=== PATIENT | female | born 1945 | race Caucasian/White ===

== ENCOUNTER 2023-04-06 13:56 | Emergency (ER) | payer MEDICARE ==
[2023-04-06 14:55] VITALS: O2SAT 97
[2023-04-06 15:02] LABS: Hematocrit 43.6 % (35-47); Hemoglobin 14.2 g/dL (12.0-16.0); Mean Corpuscular Hgb Concent. 32.6 g/dL (32-36); Mean Platelet Volume 8.7 fL (7.5-11.0); Platelet Count 203 x10^3/uL (150-450); Red Cell Distribution Width 12.9 % (11.5-14.0)
[2023-04-06 15:11] LABS: Appearance Clear (Clear); Bacteria None Seen /HPF (None Seen); Bilirubin Negative (Negative); Blood Negative (Negative); Epithelial Cells None Seen /HPF (None Seen); Glucose, Urine Negative (Negative); Hyaline Casts NONE SEEN /LPF (0-2); Ketones Trace (Negative); Leukocyte Esterase Moderate (Negative); Nitrite Negative (Negative); Ph 6.5 (4.6-8.0); Protein,Urine Dip Negative (Negative); RBC 0-2 /HPF (0-5)
[2023-04-06 15:15] LABS: ADD URINE CULTURE? YES (NO)
[2023-04-06 15:17] LABS: ACETAMINOPHEN < 10 ug/ml (10-30); ALBUMIN 4.2 g/dL (3.5-5.0); ALKALINE PHOSPHATASE 50 U/L (38-126); ANION GAP 9.9 MEQ/L (5-15); BLOOD UREA NITROGEN 11 mg/dL (7-17); CHLORIDE 98 mmol/L (98-107); Calcium 9.6 mg/dL (8.4-10.2); Carbon Dioxide 28 mmol/L (22-30); Creatinine 1 0.76 mg/dL (0.52-1.04); EST GLOMERULAR FILTRATION RATE 81.7 ML/MIN; Glucose 106 mg/dL (74-106); Potassium 3.9 mmol/L (3.5-5.1); SALICYLATE < 1.0 mg/dL (2-20); SGOT/AST 27 U/L (14-36); SGPT/ALT 14 U/L (0-35); SODIUM 133 mmol/L (137-145); Total Protein 7.3 g/dL (6.3-8.2)
[2023-04-06 15:27] LABS: Amphetamine,Urine NEGATIVE (NEGATIVE); Barbiturate,Urine NEGATIVE (NEGATIVE); Benzodiazepine,Urine NEGATIVE (NEGATIVE); Cocaine,Urine NEGATIVE (NEGATIVE); Methadone,Urine NEGATIVE (NEGATIVE); Opiate,Urine NEGATIVE (NEGATIVE); PCP,Urine NEGATIVE (NEGATIVE); THC,Urine NEGATIVE (NEGATIVE)
--- NOTE | 2023-04-06 16:04 | ERPHSYRPT ---
- History of Present Illness Time Seen by Provider: 04/06/23 14:04 Source: patient, family, EMS Exam Limitations: no limitations Patient Subjective Stated Complaint: Confusion Triage Nursing Assessment: 77 yr old female pt arrives to ED via EMS. Pt was over at [facility] and the provider wanted her to get assessed due to her behavior. Pt is alert and oriented but a poor historian. Pt is bouncing from one thought to the next. Pt keeps stating that she had open heart heart surgery last april 26, 2023. and we need to contact her weight clerk. Pt states she was planning to get back on her antidepressant and anxiety medication but they would not prescribe it to her and made her come here. Physician History: 77-year-old female with history of coronary artery disease, valve replacement, anxiety/depression who was at [facility] group therapy program when therapist noticed that she was a little confused and is sent in here for further evaluation. Patient is awake alert and fully oriented during my evaluation to make sure she does not have UTI. Patient reports she does not have any pain and has been thoroughly evaluated 2 times before this week at [facility] with CAT scan of head done yesterday which was negative. Patient denies any suicidal or homicidal ideations. She has not been very compliant with her psychiatric medications. Patient reports she does not understand why she has been sent in here. Patient during interview laughs off and on for no reason. Not a good historian and history is limited. I have talked to her daughter who is here with her and she admits that patient is at her baseline and has issue with taking her routine medications especially psychiatric ones. She did have similar symptoms in the past with UTI. Allergies/Adverse Reactions: hydrocodone Allergy (Verified 04/06/23 14:04) meperidine [From Demerol] Allergy (Verified 04/06/23 14:04) Home Medications: Denosumab 60 mg [Prolia 60 mg Injection] See Rx Instructions .ROUTE .COMPLEX 04/06/23 [History] Hx Tetanus, Diphtheria Vaccination/Date Given: Yes Hx Influenza Vaccination/Date Given: Yes Hx Pneumococcal Vaccination/Date Given: Yes Immunizations Up to Date: Yes Travel Risk - International Travel Have you traveled outside of the country in past 3 weeks: No - Coronavirus Screening Are you exhibiting any of the following symptoms?: No Close contact with a COVID-19 positive Pt in past 14-21 Days: No - Vaccine Status Have you recieved a Covid-19 vaccination: Yes Front Office Director: Moderna - Vaccination Dates Date of 2cond Vaccination (if applicable): 2020 - Review of Systems Constitutional: No Symptoms Eyes: No Symptoms Ears, Nose, & Throat: No Symptoms Respiratory: No Symptoms Cardiac: No Symptoms Abdominal/Gastrointestinal: No Symptoms Genitourinary Symptoms: No Symptoms Musculoskeletal: Arthralgias Skin: No Symptoms Neurological: No Symptoms Psychological: Anxiety, Depression, No Suicidal Ideations, No Homicidal Ideations, No Hallucinations Endocrine: No Symptoms Hematologic/Lymphatic: No Symptoms - Past Medical History Pertinent Past Medical History: Yes Neurological History: Migraines ENT History: No Pertinent History Cardiac History: Other Respiratory History: No Pertinent History Endocrine Medical History: No Pertinent History Musculoskeletal History: Arthritis GI Medical History: No Pertinent History History: No Pertinent History Psycho-Social History: Anxiety, Depression Female Reproductive Disorders: No Pertinent History - Past Surgical History Past Surgical History: Yes Neuro Surgical History: No Pertinent History Cardiac: Valve Replacement Respiratory: No Pertinent History Gastrointestinal: No Pertinent History Genitourinary: No Pertinent History Musculoskeletal: Orthopedic Surgery Female Surgical History: Tubal Ligation Other Surgical History: knee surgery - Social History Smoking Status: Never smoker Drug Use: none Patient Lives Alone: Yes - Nursing Vital Signs Nursing Vital Signs: Initial Vital Signs Pulse Rate 70 04/06/23 14:01 Blood Pressure 120/66 04/06/23 14:01 O2 Sat by Pulse Oximetry 99 04/06/23 14:01 Pain Scale Pain Intensity 0 - Physical Exam General Appearance: no apparent distress, alert Eye Exam: PERRL/EOMI Ears, Nose, Throat Exam: normal ENT inspection Neck Exam: normal inspection, supple, full range of motion Respiratory Exam: normal breath sounds, lungs clear Cardiovascular Exam: regular rate/rhythm, normal heart sounds Gastrointestinal/Abdomen Exam: soft, normal bowel sounds, No tenderness Back Exam: normal inspection, normal range of motion Extremity Exam: normal inspection, normal range of motion Neurologic Exam: alert, oriented x 3, cooperative, ledger poster II-XII nml as tested, nml cerebellar function, nml station & gait, sensation nml, No normal mood/affect, No motor deficits Skin Exam: normal color SpO2 Interpretation: normal SpO2: 97 O2 Delivery: Room Air Ordered Tests: Active Orders 24 hr Category Date Time Status Clean Catch Urine Specimen STAT Care 04/06/23 14:10 Active HEAD WITHOUT CONTRAST [CT] Stat Exams 04/06/23 14:09 Ordered ACETAMINOPHEN Stat Lab 04/06/23 14:58 Completed CBC Stat Lab 04/06/23 14:58 Completed CMP Stat Lab 04/06/23 14:58 Completed CULTURE,URINE Stat Lab 04/06/23 14:55 Received MAG [MAGNESIUM] Stat Lab 04/06/23 15:09 Completed SALICYLATE Stat Lab 04/06/23 14:58 Completed UA W/RFX UR CULTURE Stat Lab 04/06/23 14:55 Completed Urine Triage Profile Stat Lab 04/06/23 14:55 Completed Lab/Rad Data: Laboratory Result Diagrams 04/06/23 14:58 04/06/23 14:58 Laboratory Results 04/06/23 04/06/23 04/06/23 Range/Units 15:09 14:58 14:58 WBC (4.0-10.5) x10^3/uL RBC (4.1-5.4) x10^6/uL Hgb (12.0-16.0) g/dL Hct (35-47) % MCV (78-100) fL MCH (26-32) pg MCHC (32-36) g/dL RDW (11.5-14.0) % Plt Count (150-450) x10^3/uL MPV (7.5-11.0) fL Sodium 133 L (137-145) mmol/L Potassium 3.9 (3.5-5.1) mmol/L Chloride 98 (98-107) mmol/L Carbon Dioxide 28 (22-30) mmol/L Anion Gap 9.9 (5-15) MEQ/L BUN 11 (7-17) mg/dL Creatinine 0.76 (0.52-1.04) mg/dL Estimated GFR 81.7 ML/MIN Glucose 106 (74-106) mg/dL Calcium 9.6 (8.4-10.2) mg/dL Magnesium 2.2 (1.6-2.3) mg/dL Total Bilirubin 0.60 (0.2-1.3) mg/dL AST 27 (14-36) U/L ALT 14 (0-35) U/L Alkaline Phosphatase 50 (38-126) U/L Ammonia < 9 L (9-30) umol/L Serum Total Protein 7.3 (6.3-8.2) g/dL Albumin 4.2 (3.5-5.0) g/dL Urine Color (Yellow) Urine Appearance (Clear) Urine pH (4.6-8.0) Ur Specific [place] (1.005-1.030) Urine Protein (Negative) Urine Glucose (UA) (Negative) mg/dL Urine Ketones (Negative) Urine Blood (Negative) Urine Nitrite (Negative) Urine Bilirubin (Negative) Urine Urobilinogen (0.2) mg/dL Ur Leukocyte Esterase (Negative) U Hyaline Cast (Auto) (0-2) /LPF Urine Microscopic RBC (0-5) /HPF Urine Microscopic WBC (0-5) /HPF Ur Epithelial Cells (None Seen) /HPF Urine Bacteria (None Seen) /HPF Urine Culture Reflexed (NO) Salicylates < 1.0 L (2-20) mg/dL Urine Opiates Level (NEGATIVE) Ur Methadone (NEGATIVE) Acetaminophen < 10 L (10-30) ug/ml Urine Barbiturates (NEGATIVE) Ur Phencyclidine (PCP) (NEGATIVE) Urine Amphetamine (NEGATIVE) U Benzodiazepine Level (NEGATIVE) Urine Cocaine (NEGATIVE) Urine Marijuana (THC) (NEGATIVE) 04/06/23 04/06/23 04/06/23 Range/Units 14:58 14:55 14:55 WBC 5.0 (4.0-10.5) x10^3/uL RBC 4.90 (4.1-5.4) x10^6/uL Hgb 14.2 (12.0-16.0) g/dL Hct 43.6 (35-47) % MCV 89.0 (78-100) fL MCH 29.0 (26-32) pg MCHC 32.6 (32-36) g/dL RDW 12.9 (11.5-14.0) % Plt Count 203 (150-450) x10^3/uL MPV 8.7 (7.5-11.0) fL Sodium (137-145) mmol/L Potassium (3.5-5.1) mmol/L Chloride (98-107) mmol/L Carbon Dioxide (22-30) mmol/L Anion Gap (5-15) MEQ/L BUN (7-17) mg/dL Creatinine (0.52-1.04) mg/dL Estimated GFR ML/MIN Glucose (74-106) mg/dL Calcium (8.4-10.2) mg/dL Magnesium (1.6-2.3) mg/dL Total Bilirubin (0.2-1.3) mg/dL AST (14-36) U/L ALT (0-35) U/L Alkaline Phosphatase (38-126) U/L Ammonia (9-30) umol/L Serum Total Protein (6.3-8.2) g/dL Albumin (3.5-5.0) g/dL Urine Color Yellow (Yellow) Urine Appearance Clear (Clear) Urine pH 6.5 (4.6-8.0) Ur Specific [place] 1.010 (1.005-1.030) Urine Protein Negative (Negative) Urine Glucose (UA) Negative (Negative) mg/dL Urine Ketones Trace A (Negative) Urine Blood Negative (Negative) Urine Nitrite Negative (Negative) Urine Bilirubin Negative (Negative) Urine Urobilinogen 1.0 A (0.2) mg/dL Ur Leukocyte Esterase Moderate A (Negative) U Hyaline Cast (Auto) NONE SEEN (0-2) /LPF Urine Microscopic RBC 0-2 (0-5) /HPF Urine Microscopic WBC 6-10 A (0-5) /HPF Ur Epithelial Cells None Seen (None Seen) /HPF Urine Bacteria None Seen (None Seen) /HPF Urine Culture Reflexed YES (NO) Salicylates (2-20) mg/dL Urine Opiates Level NEGATIVE (NEGATIVE) Ur Methadone NEGATIVE (NEGATIVE) Acetaminophen (10-30) ug/ml Urine Barbiturates NEGATIVE (NEGATIVE) Ur Phencyclidine (PCP) NEGATIVE (NEGATIVE) Urine Amphetamine NEGATIVE (NEGATIVE) U Benzodiazepine Level NEGATIVE (NEGATIVE) Urine Cocaine NEGATIVE (NEGATIVE) Urine Marijuana (THC) NEGATIVE (NEGATIVE) - Progress Progress: improved Progress Note: 04/06/23 16:01 77-year-old with history of anxiety depression, valve replacement is evaluated in the ER for some questionable confusion while she was at the [facility] behavioral health therapy program. Patient is recommended to have CAT scan done but she is adamant about not getting it done as she has not done yesterday at [facility]. I have talked to the patient and family in detail about not doing CAT scan which would not only delay the diagnosis but also missing some important information regarding her behavior and there still refusing to have it done. I have got the report from [facility] with a CT done yesterday which is negative for any acute intracranial findings. Patient is not in any distress. Normal white count, fairly unremarkable chemistries. Does have some element of UTI and I will start her on Keflex. This might be the reason for her confusion but also some element of dementia versus not taking her routine anxiety depression medications. I have advised patient and family to have follow-up with her psychiatrist which patient is established with for further evaluation and to be restarted on medications. At this point I do not think patient needs any other workup, she is stable and do not think needs to be admitted can be discharged with outpatient follow-up. Discussed signs symptoms of worsening needing return to ER which she seems understanding. Counseled pt/family regarding: lab results, diagnosis, need for follow-up Medical Desision Making - Risk of complications The pt has a mod risk of morbidity or mortality based on: Need for prescription drug management - Departure Departure Disposition: Home Clinical Impression: Acute UTI (urinary tract infection), Behavior concern Condition: Stable Critical Care Time: No Referrals: AMBER MEDINA JR [Primary Care Provider] - Follow up with PCP 1 day Instructions: Urinary Tract Infection, Adult ED Additional Instructions: Follow-up with primary care and psychiatrist for reevaluation to be placed on medication for anxiety/depression/behavior. Return to ER for if having confusion, chest pain palpitations, difficulty breathing, fever chills etc. Prescriptions: Cephalexin Mh 500 mg [Keflex 500 mg] 500 mg PO TID #21 cap
[2023-04-06 16:11] VITALS: BP 118/79; PULSE 72; RESP 16
== END 2023-04-06 16:13 | disposition home or self-care (01) ==
LOC: ED 13:56
DX: N39.0 Urinary tract infection, site not specified (principal); R41.0 Disorientation, unspecified; Z79.899 Other long term (current) drug therapy
CPT/HCPCS: 36415; 80053; 80143; 80179; 80307; 81001; 82140; 83735; 85027; 87086; 99282